=== PATIENT | female | born 1970 | race Caucasian/White ===

== ENCOUNTER → 2018-03-12 | Day surgery (SDC) | payer OTHER ==
[~2018-03-12] VITALS: Ht 172.7 cm; Wt 117.9 kg
[~2018-03-12] MED LIST: BENTYL20 MG PO; BROMFED DM COU118 M1 PO; LEVOTHYROXINE100 MC1 PO; LISINOPRIL5 M1 PO; MELOXICAM15 M1 PO; SERTRALINE HCL50 MG PO
--- NOTE | 2018-03-12 15:00 | MAMMOGRAPHY REPORT ---
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 Recently completed neoadjuvant chemotherapy. Preoperative needle localization is requested. COMPARISON: Prior studies done on 08/06/2017. TECHNIQUE AND FINDINGS: The details of the procedure, as well as the risks, benefits, and alternatives to the procedure were explained to the patient in detail and all of her questions were answered, after which, written informed consent was obtained. Prior to the procedure, sonography revealed subtle area of architectural distortion at the site of the previously documented lobulated hypervascular 2.5 cm maximum dimension solid mass as was detected on 08/06/2017. No residual mass is visualized. The tissue marker is not identified. Given the subtle finding on the ultrasound, a decision was made to localize the residual tumor using mammographic technique. Accordingly, the patient was taken to the mammographic suite and right CC and right ML views were obtained. There is no residual mass identified. Subtle asymmetry is visualized at the mid to anterior inner part of the right breast at the site of the previously documented tumor. On the ML projection, there is no discrete mass visualized. The tissue marker is also not visualized within the breast. The patient apparently has a drainage procedure performed at upper inner quadrant of the right breast for sebaceous cyst in the interim. Due to nonvisualization of the tissue marker as well as the residual tumor, the difficulty of localizing the previously documented tumor was discussed in detail with Dr. Khan and the rest of the oncology team. The findings were also reviewed with the patient. Subsequently, a decision was made to proceed with ultrasound-guided localization followed by confirmation with mammographic technique. Accordingly, in the sonographic suite, a timeout was performed, the lesion intended for needle localization was targeted and the skin of the right breast was then prepped and draped in the usual sterile fashion. Using sonographic guidance, sterile technique and buffered 2% lidocaine without epinephrine for local anesthesia, a 5 cm Kopan's needle was placed at the site of subtle architectural distortion at 1 o'clock, 9 cm from the nipple. The patient tolerated the procedure well. Subsequently, the patient was taken to the mammographic suite and right CC and right ML views were obtained. Both views further confirmed satisfactory position of the localization wire to the expected site of the previously documented malignancy at upper inner quadrant of the right breast at middle depth. The worksheet was appropriately labeled and was sent to the OR with the patient. Subsequently, following excision of the mass, the specimen radiography was performed which revealed subtle asymmetry adjacent to the intact localization wire (likely represents the residual lesion) within the specimen. IMPRESSION: 1. Successful sonographic-guided wire localization of the right breast biopsy proved malignancy at 1 o'clock, 9 cm from the nipple. 2. Mammographic confirmation of accurate needle localization along with appropriate marking for presurgical roadmap with the worksheet. 3. Final specimen radiograph confirming complete, adequate excision of the residual subtle asymmetry at the site of the previously detected biopsy proved malignancy, and removal of intact wire. 4. Since the tissue marker placed at the time of ultrasound-guided biopsy done on 08/06/2017 is not visualized within the right breast on the current mammographic as well as sonographic images, the tissue marker likely has migrated outside of the breast tissue. Accordingly, followup radiographic images (frontal views only) of the head, neck, chest, abdomen, pelvis and both upper and lower extremities are recommended. Results were called to Dr. Khan in the operating room at the time of imaging. The histology report is pending.
--- NOTE | 2018-03-12 15:09 | Operative Report ---
Operative/Inv Procedure Report Surgery Date: 03/12/18 Name of Procedure: Right partial mastectomy with wire localization and sentinel lymph node biopsy Pre-Operative Diagnosis: Breast cancer Post-Operative Diagnosis: Same Estimated Blood Loss: less than 50ml Surgeon/[employer] Analyst: Rosaura Khan MD Anesthesia: laryngeal mask airway Specimens: Right partial mastectomy, cranial margin, caudal margin, medial margin, lateral margin, deep margin, skin margin, sentinel lymph nodes Operative/Procedure Note Note: Patient is brought to the operating room on 03/12/2018 for definitive surgical management of her right breast cancer. She was diagnosed with a clinical stage II triple negative breast cancer and underwent neoadjuvant chemotherapy. She had a good clinical and radiologic response. Partial mastectomy was planned. She was brought for wire localization and no clip was present. The clip had migrated either externally or internally. Ultrasound was used to localize an area of altered echotexture and mammography confirmed the landmarks in that region. She is brought to the operating room and placed under anesthesia. 2 g of Ancef was given and the right breast was prepped and draped in a sterile fashion using ChloraPrep. Cc of plain blue diluted with 2 mL of saline was injected in the retroareolar fashion. Incision was planned. Local anesthesia 1% lidocaine exception Marcaine was given and a curvilinear incision was made in the upper inner aspect of the areola. A skin flap was created superiorly to the upper inner quadrant and the wire was brought into the incision. Breast tissue was mobilized from the subcutaneous tissue laterally and medially to the lesion. A lumpectomy was performed and specimen was removed and marked for orientation using margin map. Intraoperative x-ray confirmed the wire in the specimen. Additional margins were taken widely in the cranial, caudal, medial, lateral, deep, and in position. The anterior or skin margin left behind only dermis overlying the wire insertion site and palpable firmness. A 3 x 4 BioSorb Marker was placed in the lumpectomy cavity and fashioned to the adjacent tissue using Maxon sutures. The mobilized breast tissue was closed over the Marker. Additional space was closed using Vicryl sutures and the skin was closed using a running Biosyn subcutaneous color stitch. The axilla was then approached. Local anesthesia was given. Clavipectoral fascia was entered in the axilla was explored. There was a lymph node that was notable for increased radiotracer and that lymph node was excised. 2 additional lymph nodes were found deep to this lymph node with radiotracer uptake as well as methylene blue uptake. These were removed and sent as sentinel lymph nodes. There were no other blue, palpable, or radioactive lymph nodes in the axilla. Hemostasis was achieved using mammary clips and electrocautery. Clavipectoral fascia was closed using interrupted Vicryl sutures and the skin was closed using a running Biosyn subcuticular stitch. Steri-Strips and sterile dressings were applied and patient transferred to the recovery room in satisfactory condition having tolerated procedure well.
== END ==
LOC: STS 02:15 → CBW.IIU 07:00 → CBW.US 08:00
DX: C50.211 Malignant neoplasm of upper-inner quadrant of right female breast (principal); Z17.1 Estrogen receptor negative status [ER-]; E11.9 Type 2 diabetes mellitus without complications; E07.9 Disorder of thyroid, unspecified; I10 Essential (primary) hypertension; F17.200 Nicotine dependence, unspecified, uncomplicated; G47.33 Obstructive sleep apnea (adult) (pediatric)
CPT/HCPCS: 76942; 77065-RT; C9728; J0131; J0690; J1100; J1885; J2250; J2405; Q9968